=== PATIENT | male | born 1955 | race Caucasian/White ===

== ENCOUNTER 2017-01-24 18:05 | Inpatient (IN) | payer MEDICARE, MEDICAID ==
[~2017-01-24] VITALS: Ht 154.9 cm; Wt 51.1 kg
[~2017-01-24 18:05] MED LIST: ALBU8.5H5 INH; ASPI-496 PO; ATOR10TA9 PO; ATOR20TA PO; BUDE10.22 INH; CYCL-259 PO; FLUT1DIS5 IH; LISI-167 PO; LISI40TA PO; TIOT18CA INH
[2017-01-24] MEDS ORDERED: FURO-93 PO (18:19)
[2017-01-24] MEDS ORDERED: TIOT18CA INH (18:19)
[2017-01-24] MEDS ORDERED: SODIUM CHLORIDE FLUSH 10ML SYR IVF ONE (18:30)
[2017-01-24] MEDS ORDERED: SODIUM CHLORIDE 0.9% 1,000ML IVBOLUS ONE (18:30)
[2017-01-24] MEDS ORDERED: methylPREDNISolone SOD SUCC 125 MG/2 ML IVP ONE (18:30)
[2017-01-24] MEDS ORDERED: methylPREDNISolone SOD SUCC 125 MG/2 ML ONE (18:35)
[2017-01-24 18:36] LABS: HEMOGLOBIN 11.8 g/dL (13.7-18.0)
[2017-01-24] MEDS ORDERED: ALBUTEROL/IPRATROPIUM 2.5MG/0.5MG, 3 ML ONE (18:37)
[2017-01-24] MEDS: ALBUTEROL/IPRATROPIUM 2.5MG/0.5MG, 3 ML NPPB SCH (18:41)
[2017-01-24 18:48] LABS: ASPARTATE AMINO TRANSFERASE 40 U/L (15-37); BLOOD UREA NITROGEN 12 mg/dL (7-18)
[2017-01-24 18:59] LABS: IS PT STATUS REG ER OR PRE ER? YES
[2017-01-24] MEDS ORDERED: SODIUM CHLORIDE 0.9% 1,000 ML IV SCH (21:22)
[2017-01-24 21:30] VITALS: BP 178/67
[2017-01-24] MEDS ORDERED: ACETAMINOPHEN 325 MG TABLET PO PRN (21:30)
[2017-01-24] MEDS ORDERED: LABETALOL 5MG/ML, 20ML IV PRN ×2 (21:30)
[2017-01-24] MEDS ORDERED: TRAZODONE 50MG TABLET PO PRN (21:30)
[2017-01-24] MEDS ORDERED: BISACODYL 10 MG SUPP PR PRN (21:30)
[2017-01-24] MEDS ORDERED: ONDANSETRON ODT 4 MG PO PRN (21:30)
[2017-01-24] MEDS ORDERED: DOCUSATE 100 MG CAPSULE PO PRN (21:30)
[2017-01-24] MEDS ORDERED: POLYETHYLENE GLYCOL 17 GM PACKET PO PRN (21:30)
[2017-01-24] MEDS: ENOXAPARIN 40 MG/0.4 ML SQ SCH (22:43)
[2017-01-24] MEDS: NICOTINE 14MG/24 HR PATCH.TD24 TD SCH (22:43)
[2017-01-24] MEDS: methylPREDNISolone SOD SUCC 125 MG/2 ML IVPush SCH (22:43)
[2017-01-25 02:54] VITALS: BP 163/76
[2017-01-25] MEDS: methylPREDNISolone SOD SUCC 125 MG/2 ML IVPush SCH ×4 (03:16→21:15)
[2017-01-25 06:00] LABS: HEMOGLOBIN 12.1 g/dL (13.7-18.0)
[2017-01-25 06:08] LABS: BLOOD UREA NITROGEN 17 mg/dL (7-18)
[2017-01-25 06:13] LABS: ASPARTATE AMINO TRANSFERASE 33 U/L (15-37)
[2017-01-25 07:11] VITALS: BP 170/69
[2017-01-25] MEDS: ALBUTEROL/IPRATROPIUM 2.5MG/0.5MG, 3 ML NPPB SCH ×5 (07:40→22:00)
[2017-01-25] MEDS ORDERED: FUROSEMIDE 20 MG TABLET PO SCH (09:00)
[2017-01-25] MEDS ORDERED: AZITHROMYCIN 500 MG TABLET PO SCH (09:00)
[2017-01-25] MEDS ORDERED: TEMPLATE NON-FORMULARY MED. (Tiotropium Bromide** (Spiriva**) 18 MCG) INH SCH (09:00)
[2017-01-25] MEDS ORDERED: ASPIRIN 81 MG TABLET EC PO SCH (09:00)
[2017-01-25] MEDS ORDERED: LISINOPRIL 20 MG TABLET PO SCH (09:00)
[2017-01-25] MEDS ORDERED: ALBUTEROL SULFATE 2.5 MG/3 ML ONE (10:42)
[2017-01-25 12:57] VITALS: BP 158/62
[2017-01-25] MEDS ORDERED: GUAIFENESIN 100 MG/5 ML, 10ML UDC PO PRN (17:00)
[2017-01-25] MEDS ORDERED: BENZONATATE 100 MG CAPSULE PO PRN (17:00)
[2017-01-25] MEDS: INSULIN REGULAR 100 UNITS/ML, 3ML VIAL SQ-INSULIN SCH ×2 (17:30→21:16)
[2017-01-25 19:29] VITALS: BP 160/75
[2017-01-25] MEDS: ENOXAPARIN 40 MG/0.4 ML SQ SCH (21:16)
[2017-01-25] MEDS: NICOTINE 14MG/24 HR PATCH.TD24 TD SCH (21:16)
== END 2017-01-26 03:00 | disposition left against medical advice (07) | DRG 189 ==
LOC: ED 20:09 → EDIP 20:37 → 3NE 20:58
PROVIDERS: ADMIT Internal Medicine; ATTEND Internal Medicine
DX: J96.21 Acute and chronic respiratory failure with hypoxia (principal); J44.1 Chronic obstructive pulmonary disease with (acute) exacerbation; J45.901 Unspecified asthma with (acute) exacerbation; R45.851 Suicidal ideations; J44.0 Chronic obstructive pulmonary disease with (acute) lower respiratory infection; C14.0 Malignant neoplasm of pharynx, unspecified; E78.5 Hyperlipidemia, unspecified; I10 Essential (primary) hypertension; D64.9 Anemia, unspecified; B18.2 Chronic viral hepatitis C; F17.210 Nicotine dependence, cigarettes, uncomplicated; N52.9 Male erectile dysfunction, unspecified; E78.00 Pure hypercholesterolemia, unspecified; R73.9 Hyperglycemia, unspecified; G89.29 Other chronic pain; M54.9 Dorsalgia, unspecified; F32.9 Major depressive disorder, single episode, unspecified; F41.9 Anxiety disorder, unspecified; R63.4 Abnormal weight loss; Z85.819 Personal history of malignant neoplasm of unspecified site of lip, oral cavity, and pharynx; Z86.73 Personal history of transient ischemic attack (TIA), and cerebral infarction without residual deficits; Z92.3 Personal history of irradiation; Z90.49 Acquired absence of other specified parts of digestive tract; Z87.01 Personal history of pneumonia (recurrent); Z59.0 Homelessness; Z68.21 Body mass index [BMI] 21.0-21.9, adult; J20.9 Acute bronchitis, unspecified
CPT/HCPCS: 36415; 71010; 80053; 82962; 83880; 84484; 85025; 93005; 94640; 96361; 96374; J1650; J1815; J7620; J2930; J7030

== ENCOUNTER → 2017-03-01 | Outpatient (CLI) | payer MEDICARE, MEDICAID ==
[~2017-03-01] MED LIST changes: +FURO-93 PO; +OMNIPAQUE 350 MG/ML, 150 ML BOTTLE ONE
== END | disposition home or self-care (01) ==
LOC: CFH 09:41
PROVIDERS: ATTEND Radiology Radiation Oncology
DX: C09.9 Malignant neoplasm of tonsil, unspecified (principal); R91.8 Other nonspecific abnormal finding of lung field; J98.11 Atelectasis; R59.1 Generalized enlarged lymph nodes
CPT/HCPCS: 70491; 71260; Q9967

== ENCOUNTER → 2017-06-08 | Outpatient (CLI) | payer MEDICARE, MEDICAID ==
[~2017-06-08] MED LIST changes: -OMNIPAQUE 350 MG/ML, 150 ML BOTTLE ONE
== END | disposition home or self-care (01) ==
LOC: PETCFH 08:25
PROVIDERS: ATTEND Radiology Radiation Oncology
DX: C09.9 Malignant neoplasm of tonsil, unspecified (principal); C76.0 Malignant neoplasm of head, face and neck; I10 Essential (primary) hypertension
CPT/HCPCS: 78815; A9552

== ENCOUNTER → 2017-06-18 | Outpatient (CLI) | payer MEDICARE, MEDICAID | END | disposition home or self-care (01) | LOC: ROC 10:24 | PROVIDERS: ATTEND Radiology Radiation Oncology | DX: C09.9 Malignant neoplasm of tonsil, unspecified (principal); C77.9 Secondary and unspecified malignant neoplasm of lymph node, unspecified; F10.20 Alcohol dependence, uncomplicated; J44.9 Chronic obstructive pulmonary disease, unspecified | CPT/HCPCS: G0463 ==

== ENCOUNTER → 2017-09-20 | Outpatient (CLI) | payer MEDICAID, MEDICARE | END | disposition home or self-care (01) | LOC: ROC 09:59 | PROVIDERS: ATTEND Radiology Radiation Oncology | DX: Z02.9 Encounter for administrative examinations, unspecified (principal) ==

== ENCOUNTER 2019-01-31 21:55 | Inpatient (IN) | payer MEDICARE, MEDICAID ==
[~2019-01-31] VITALS: Ht 175.3 cm; Wt 54.6 kg
[~2019-01-31 21:55] MED LIST changes: +carvedilol PO
--- NOTE | 2019-01-31 22:38 | NUR ---
FROM LOBBY TO ROOM AT THIS TIME
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
[2019-01-31] MEDS ORDERED: ONDANSETRON 2MG/ML, 2ML ONE (23:19)
[2019-01-31] MEDS ORDERED: MORPHINE SULFATE 4 MG/ML, 1ML ONE (23:19)
[2019-01-31] MEDS ORDERED: ONDANSETRON 2MG/ML, 2ML IVPush ONE (23:30)
[2019-01-31] MEDS: MORPHINE SULFATE 4 MG/ML, 1ML IVPush PRN (23:33)
[2019-01-31 23:40] LABS: MEAN CORPUSCULAR HEMOGLOBIN 22.5 pg (27.5-34.5); MEAN CORPUSCULAR HGB CONC 31.7 g/dL (33.2-36.2); MEAN CORPUSCULAR VOLUME 71.1 fL (81-97); MEAN PLATELET VOLUME 9.4 fL (7.4-10.4); PLATELET COUNT 307 x10^3/uL (130-400); RED BLOOD COUNT 4.38 x10^6/uL (4.38-5.82); RED CELL DISTRIBUTION WIDTH 23.3 % (9.4-14.8)
--- NOTE | 2019-01-31 23:40 | NUR ---
given meds ( morphine iv with zofran ) pt is resting bp is slight low trends now
--- NOTE | 2019-01-31 23:42 | NUR ---
CT PENDING CREATINE
--- NOTE | 2019-01-31 23:50 | NUR ---
given meds vss updated
[2019-01-31 23:52] LABS: ALBUMIN 2.9 g/dL (3.4-5.0); ANION GAP 3 mmol/L (5-15); CALCIUM 8.2 mg/dL (8.5-10.1); CHLORIDE 103 mmol/L (98-107)
[2019-01-31 23:55] LABS: ALANINE AMINOTRANSFERASE 27 U/L (12-78); ALKALINE PHOSPHATASE 74 U/L (45-117); BILIRUBIN,TOTAL 1.4 mg/dL (0.2-1.0); CREATININE 1.19 mg/dL (0.7-1.3); TOTAL PROTEIN 6.3 g/dL (6.4-8.2)
[2019-02-01 00:04] LABS: BASOPHILS % (AUTO) 0 % (0-1); EOSINOPHILS # (AUTO) 0.11 x10^3/uL (0-0.4); EOSINOPHILS % (AUTO) 1 % (1-7); LYMPHOCYTES # (AUTO) 0.94 x10^3/uL (1-3.4); LYMPHOCYTES % (AUTO) 10 % (22-44); MD SCAN; MONOCYTES # (AUTO) 0.22 x10^3/uL (0.2-0.8); MONOCYTES % (AUTO) 2 % (2-9); NEUTROPHILS # (AUTO) 8.61 x10^3/uL (1.8-6.8); NEUTROPHILS % (AUTO) 87 % (42-75)
[2019-02-01] MEDS ORDERED: OMNIPAQUE 350 MG/ML, 100ML BOTTLE ONE (00:34)
--- NOTE | 2019-02-01 00:37 | NUR ---
pt came back from ct
--- NOTE | 2019-02-01 01:17 | NUR ---
pt will be admitted
[2019-02-01] MEDS ORDERED: ONDANSETRON 2MG/ML, 2ML IVPush PRN (01:30)
[2019-02-01] MEDS ORDERED: MORPHINE SULFATE 4 MG/ML, 1ML IVPush PRN ×2 (01:30→04:00)
[2019-02-01] MEDS ORDERED: MORPHINE SULFATE 4 MG/ML, 1ML ONE (01:39)
[2019-02-01] MEDS ORDERED: ONDANSETRON 2MG/ML, 2ML ONE (01:39)
[2019-02-01] MEDS: MORPHINE SULFATE 4 MG/ML, 1ML IVPush PRN (01:42)
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
[2019-02-01 02:05] VITALS: BP 129/68
[2019-02-01 02:10] LABS: INTERNATIONAL NORMALIZED RATIO 1.11 (0.93-1.1); PROTHROMBIN TIME 11.6 Seconds (9.6-11.5)
[2019-02-01 06:27] LABS: MICROSCOPIC INDICATED
[2019-02-01 06:52] LABS: CULTURE INDICATED? YES
[2019-02-01 08:05] VITALS: BP 94/56
[2019-02-01 15:25] VITALS: BP 90/60
[2019-02-01 19:05] VITALS: BP 112/63
[2019-02-01] MEDS: ONDANSETRON 2MG/ML, 2ML IVPush PRN (21:09)
[2019-02-01 22:55] VITALS: BP 94/55
[2019-02-01 23:10] VITALS: BP 94/36
[2019-02-01] MEDS: D5%-0.45% NACL 1,000 ML IV SCH (23:13)
[2019-02-02] MEDS ORDERED: OMNIPAQUE 350 MG/ML, 100ML BOTTLE ONE (00:47)
[2019-02-02 01:12] VITALS: BP 109/53
[2019-02-02 01:40] VITALS: BP 109/53
[2019-02-02] MEDS: ONDANSETRON 2MG/ML, 2ML IVPush PRN (04:57)
[2019-02-02] MEDS: D5%-0.45% NACL 1,000 ML IV SCH (05:28)
[2019-02-02] MEDS ORDERED: LIDOCAINE-MPF 1%, 5ML ONE (08:09)
[2019-02-02 09:12] LABS: MEAN CORPUSCULAR HEMOGLOBIN 21.9 pg (27.5-34.5); MEAN CORPUSCULAR HGB CONC 30.7 g/dL (33.2-36.2); MEAN CORPUSCULAR VOLUME 71.3 fL (81-97); MEAN PLATELET VOLUME 9.9 fL (7.4-10.4); PLATELET COUNT 251 x10^3/uL (130-400); RED BLOOD COUNT 3.39 x10^6/uL (4.38-5.82); RED CELL DISTRIBUTION WIDTH 22.8 % (9.4-14.8)
[2019-02-02] MEDS ORDERED: DIPHENHYDRAMINE 12.5MG/5ML, 10ML UDC PO ONE (09:30)
[2019-02-02 09:42] LABS: MD YES
[2019-02-02 09:44] LABS: <PLATELET ESTIMATE> ADEQUATE; <PLT MORPHOLOGY> NORMAL PLT MORPH; ANISOCYTOSIS 1+; BAND#(MANUAL) 0.69 x10^3/uL; BANDS%(MANUAL) 4 % (0-7); LYMPH#(MANUAL) 0.87 x10^3/uL (1-3.4); LYMPHS% (MANUAL) 5 % (22-44); MICROCYTOSIS 1+; MONOS#(MANUAL) 2.25 x10^3/uL (0.3-2.7); MONOS% (MANUAL) 13 % (2-9); SEG#(MANUAL) 13.49 x10^3/uL (1.8-6.8); SEGS% (MANUAL) 78 % (42-75)
[2019-02-02 09:45] LABS: HYPOCHROMIA 2+; POLYCHROMASIA 1+
[2019-02-02 10:15] VITALS: BP 107/64
[2019-02-02 10:35] VITALS: BP 107/64
== END 2019-02-02 10:59 | disposition short-term general hospital (02) | DRG 814 ==
LOC: ED 02-01 01:15 → EDIP 02-01 01:22 → 3NW 02-01 02:02
PROVIDERS: ADMIT Family Medicine; ATTEND Family Medicine
PROC: 30233N1 Transfusion of Nonautologous Red Blood Cells into Peripheral Vein, Percutaneous Approach (ICD-10-PCS; principal; 2019-02-02)
PROC: 0W9G3ZZ Drainage of Peritoneal Cavity, Percutaneous Approach (ICD-10-PCS; 2019-02-02)
DX: S36.039A Unspecified laceration of spleen, initial encounter (principal); E43 Unspecified severe protein-calorie malnutrition; K66.1 Hemoperitoneum; R18.8 Other ascites; Z68.1 Body mass index [BMI] 19.9 or less, adult; K74.60 Unspecified cirrhosis of liver; D50.9 Iron deficiency anemia, unspecified; Z59.0 Homelessness; Z90.49 Acquired absence of other specified parts of digestive tract; F17.210 Nicotine dependence, cigarettes, uncomplicated; I10 Essential (primary) hypertension; K40.90 Unilateral inguinal hernia, without obstruction or gangrene, not specified as recurrent; K72.90 Hepatic failure, unspecified without coma; K73.2 Chronic active hepatitis, not elsewhere classified; F15.10 Other stimulant abuse, uncomplicated; W50.1XXA Accidental kick by another person, initial encounter; Y93.89 Activity, other specified; Y92.89 Other specified places as the place of occurrence of the external cause; Y99.8 Other external cause status
CPT/HCPCS: 36415; 36430; 49083; 74177; 80053; 81001; 82042; 82140; 83615; 83690; 83986; 84157; 85014; 85018; 85025; 85610; 85730; 86850; 86900; 86923; 87070; 87086; 87205; 88112; 88305; 89051; 96374; 96375; 96376; G0378; J2405; Q9967; P9016

== ENCOUNTER → 2019-03-13 | Outpatient (CLI) | payer MEDICARE, MEDICAID | END | disposition home or self-care (01) | LOC: ROC 07:48 | PROVIDERS: ATTEND Radiology Radiation Oncology | DX: Z08 Encounter for follow-up examination after completed treatment for malignant neoplasm (principal); C09.9 Malignant neoplasm of tonsil, unspecified; K40.90 Unilateral inguinal hernia, without obstruction or gangrene, not specified as recurrent; F10.20 Alcohol dependence, uncomplicated | CPT/HCPCS: G0463 ==